=== PATIENT | female | born 1975 | race Two or more races ===

== ENCOUNTER 2024-06-27 01:31 | Emergency (ER) | payer MEDICAID, SELFPAY ==
[2024-06-27 01:32] VITALS: BMI 32.3
[2024-06-27 02:02] VITALS: BP 152/93; PULSE 133; RESP 20; TEMP 37.9; O2SAT 97
--- NOTE | 2024-06-27 02:20 | XR_ITS ---
Examination: PA chest single view TECHNIQUE: Upright PA chest single view Exam date and time: June 27, 2024 0225 hours INDICATIONS: Chest pain beginning 3 days ago. FINDINGS: Normal heart size Lungs are clear. The osseous structures are intact IMPRESSION: No active disease
--- NOTE | 2024-06-27 02:20 | EKG_ITS ---
[facility] (Formerly [facility]) Test Date: 2024-06-27 Pat Name: REYNALDO BISWAS Department: Room: - Gender: Female Ring Maker: : 1975 Requested By: Chidi Vazquez Order Number: [id number] Reading MD: Chidi Vazquez Measurements Intervals [place] Rate: 127 P: 56 OK: 157 QRS: 28 QRSD: 89 T: 46 QT: 289 QTc: 420 Interpretive Statements SINUS TACHYCARDIA POSSIBLE ANTERIOR MYOCARDIAL INFARCTION , PROBABLY OLD [30 ms Q WAVE IN V3/V4, OR R < 0.2 mV IN V4] ABNORMAL RHYTHM ECG Compared to ECG 09/14/2023 16:50:15 No significant changes /store/S0/[id number].pdf
--- NOTE | 2024-06-27 02:21 | EDRME_ITS ---
Rapid Medical Screening Exam [facility] Arrival date/time: 06/27/24 01:31 49F with history of HTN and DM presents to ED with 1 day of CP and SOB, as well as cough. Chief Complaint: Flu Like Symptoms Vital signs: Vital Signs Temperature 100.2 F 06/27/24 02:02 Pulse Rate 133 H 06/27/24 02:02 Respiratory Rate 20 06/27/24 02:02 Blood Pressure 152/93 H 06/27/24 02:02 Pulse Oximetry (%) 97 06/27/24 02:02 Oxygen Delivery Method Room Air 06/27/24 02:02
[2024-06-27 02:34] VITALS: TEMP 37.9
[2024-06-27] MEDS: ACETAMINOPHEN 500 MG TABLET 1000 MG PO (02:34)
[2024-06-27 02:42] LABS: Lactate (Lactic Acid) 1.3 mMol/L (0.4-2.0)
[2024-06-27 02:50] VITALS: BP 145/95; PULSE 127; RESP 19; TEMP 37.4; O2SAT 95
[2024-06-27 03:02] LABS: Basophils % (Auto) 0 % (0-2.5); Eosinophils # (Auto) 0.1 Thou/mm3 (0.0-0.5); Eosinophils % (Auto) 2 % (0-10); Hematocrit 35.6 % (36.0-46.0); Hemoglobin 12.1 g/dL (12.0-16.0); Immature Granulocytes % (Auto) 0 % (0-0); Immature Granulocytes Auto 0.03 Thou/mm3 (0.00-0.00); Lymphocytes # (Auto) 0.9 Thou/mm3 (1.0-4.8); Lymphocytes % (Auto) 10 % (10-50); Mean Corpuscular Hemoglobin 27.6 pg (25.0-35.0); Mean Corpuscular Volume 81 fL (80-100); Monocytes # (Auto) 0.7 Thou/mm3 (0.0-0.8); Monocytes % (Auto) 7 % (0-12); Neutrophils # (Auto) 7.4 Thou/mm3 (1.8-7.7); Neutrophils % (Auto) 81 % (37-80); Nucleated Red Blood Cell % 0 /100 WBC (0); Platelet Count 162 Thou/mm3 (140-440); RDW Standard Deviation 36.7 fL (36.4-46.3); Red Blood Count 4.38 Miln/mm3 (4.00-5.20); White Blood Count 9.1 Thou/mm3 (3.6-11.0)
[2024-06-27 03:13] VITALS: TEMP 37.4
[2024-06-27 03:14] LABS: Alanine Aminotransferase 12 U/L (10-49); Albumin/Globulin Ratio 1.7 (1.2-2.2); Alkaline Phosphatase 124 U/L (46-116); Anion Gap 9 (7-16); Aspartate Amino Transferase 14 U/L (0-34); BUN/Creatinine Ratio 24 Ratio (12-20); Bilirubin,Total 0.4 mg/dL (0.3-1.2); Blood Urea Nitrogen 24 mg/dL (9-23); Calcium 10.3 mg/dL (8.3-10.6); Calcium (Corrected) 10.3 mg/dL (8.5-10.1); Carbon Dioxide 27.9 mMol/L (20.0-31.0); Chloride 105 mMol/L (98-107); Estimated Creatinine Clearance 58.4 mL/min (>60); Globulin 2.9 gm/dL (2.3-3.5); Glucose 333 mg/dL (74-106); Osmolality,Calculated 300 (275-295); Potassium 4.5 mMol/L (3.4-5.1); Procalcitonin 0.12 ng/ml (0.0-0.49); Sodium 142 mMol/L (136-145); Total Protein 7.9 gm/dL (5.7-8.2); Troponin I < 0.002 ng/mL (0.0-0.045); eGFR > 60 See Note
--- NOTE | 2024-06-27 03:21 | PD.EDURI ---
Upper Respiratory Inf. RME/HPI General Chief Complaint: Flu Like Symptoms Stated Complaint: FLU LIKE SYMPTOMS Time Seen by Provider: 06/27/24 03:28 Arrival date/time: 06/27/24 01:31 RME / HPI RME / HPI Narrative: 06/27/24 01:31 49F with history of HTN and DM presents to ED with 1 day of CP and SOB, as well as cough. -------- Dr. Roper?s Main ED Evaluation: 49yo female with a history of DM, HTN presents to the ED for a chief complaint of shakiness. Daughter states the patient was sleeping when she started shaking and appeared short of breath, so she brought the patient in for evaluation. Patient endorses having a headache (6 out of 10), neck pain, chest pressure, N/V, chills, cough, and a sore throat. She denies any diarrhea, fever, sweating or any other associated symptoms. No known allergies. Related Data Home Medications ?Medication ?Instructions ?Recorded ?Confirmed glyburide 5 mg tablet (Diabeta) 5 mg PO BID ##0 11/10/09 lisinopril 10 mg tablet (Zestril) 10 mg PO DAILY ##0 11/10/09 metformin 1,000 mg tablet 1,000 mg PO BID ##0 11/10/09 (Glucophage) simvastatin 10 mg tablet (Zocor) 10 mg PO QHS ##0 11/10/09 Previous Rx's ?Medication ?Instructions ?Recorded hydrocodone 5 mg-acetaminophen 325 1 tab PO BID PRN pain #6 tabs 11/20/21 mg tablet ibuprofen 800 mg tablet 800 mg PO TID PRN pain #30 tabs 11/20/21 cefuroxime axetil 500 mg tablet 500 mg PO BID #14 tabs 09/14/23 naproxen 500 mg tablet (Naprosyn) 500 mg PO BID PRN pain #30 tabs 09/14/23 acetaminophen 500 mg capsule 1,000 mg (2 x 500 mg) PO Q6H PRN 06/27/24 fever or pain 5 days #40 caps ibuprofen 600 mg tablet 600 mg PO Q6H PRN fever or pain 5 06/27/24 days #20 tabs ondansetron 4 mg disintegrating 4 mg PO Q6H PRN nausea and 06/27/24 tablet vomiting #14 tabs Allergies Allergy/AdvReac Type Severity Reaction Status Date / Time No Known Allergies Allergy Verified 06/27/24 01:34 Review of Systems Review of Systems Systems Reviewed: All systems reviewed, normal except as documented ED Exam Narrative Physical exam: GENERAL APPEARANCE: alert and oriented x 4, well-developed, well-nourished, no acute distress VITALS: All vitals were reviewed and the pulse ox is 95% on room air, which is normal according to my interpretation. HEENT: Normocephalic, atraumatic; pupils equal, round, reactive to light; EOMI; mucous membranes pink, moist; throat is erythematous without exudates, uvula is midline, no stridor NECK: Supple LUNGS: CTABL; no wheezes, no rales, no rhonchi HEART: Tachycardic, regular rhythm; normal S1, S2; no murmurs ABDOMEN: non distended; normal BS; soft, no tenderness, no guarding, no rebound; no masses, no organomegaly, no hernia BACK: no CVA tenderness EXTREMITIES: atraumatic; no edema NEUROLOGIC: awake; alert and oriented x4; cranial nerves II-XII grossly intact; no focal sensory or motor deficits PSYCHIATRIC: appropriate mood and affect SKIN: warm, dry, normal color; no rashes Course Quality Measures none Orders Category Date Time Status Bedside COVID-19 Antigen Test NOW Care 06/27/24 02:20 Completed Bedside Influenza A&B Antigen Test NOW Care 06/27/24 01:42 Completed EKG (ED ONLY) *Do not use* NOW Care 06/27/24 02:20 Completed IV [Insert IV] NOW Care 06/27/24 04:05 Active EKG (ED Only) Stat Exams 06/27/24 02:20 Draft XR chest 1V portable Stat Exams 06/27/24 02:20 Taken CBC Stat Lab 06/27/24 02:36 Completed Comprehensive Metabolic Panel Stat Lab 06/27/24 02:36 Completed Lactate (Lactic Acid) Stat Lab 06/27/24 02:36 Completed Procalcitonin Stat Lab 06/27/24 02:36 Completed Troponin I Stat Lab 06/27/24 02:36 Completed Acetaminophen Tab [Tylenol ES Tab] Med 06/27/24 02:20 Discontinued 1,000 mg PO X1 ONE Dexamethasone Inj [Decadron Inj] Med 06/27/24 04:05 Discontinued 10 mg PO X1 ONE DiphenhydrAMINE INJ [Benadryl Inj] Med 06/27/24 04:05 Discontinued 12.5 mg IVP X1 ONE Ketorolac Inj [Toradol Inj] Med 06/27/24 04:05 Discontinued 15 mg IVP X1 ONE Metoclopramide Inj [Reglan Inj] Med 06/27/24 04:05 Discontinued 10 mg IVP X1 ONE Sodium Chloride 0.9% 1000 ml [Ns] 1,000 ml Med 06/27/24 04:05 Discontinued IV 999 mls/hr Reevaluation(s) Reevaluation #1: Patient states she feels a little better, but still continues to have a headache. Will continue to observe the patient. Time: 05:13 Reevaluation #2: Patient feels significantly better and is stable to be discharged home. Time: 05:30 Vital Signs Vital signs: Vital Signs Temperature 100.2 F 06/27/24 02:02 Pulse Rate 133 H 06/27/24 02:02 Respiratory Rate 20 06/27/24 02:02 Blood Pressure 152/93 H 06/27/24 02:02 Pulse Oximetry (%) 97 06/27/24 02:02 Oxygen Delivery Method Room Air 06/27/24 02:02 Upper Respiratory Infection MDM Narrative MDM Narrative:: Scribe Attestation: 06/27/24 Iris Hilton am scribing for and in the presence of Dr. Roper. Patient data External records reviewed:: [facility] previous records (Per chart review, patient was seen here on 09/14/23 for DM with hyperglycemia.) Clinical information provided by:: patient Social determinants that could affect healthcare access:: none Patient has the following chronic illnesses:: DM, HTN How is presenting disease/condition affected by chronic disease/condition?: uneffected by Evaluation data The following diagnostics were reviewed and interpreted by me:: lab results, radiology exam(s) and EKG tracing(s) Lab and/or radiology exams considered but not ordered:: none Interpretation Summary: Bedside COVID and Influenza are negative, CBC is normal, BUN is 24, Glucose is elevated at 333, Anion Gap is 9, Troponin is normal, Lactic Acid is normal, Procalcitonin is normal, according to my interpretation. CXR shows normal cardiac silhouette, normal sharp diaphragmatic edge, no infiltrates, normal costophrenic angles, according to my interpretation. EKG done at 0223, sinus tachycardia, rate of 127, normal axis, no ectopy, no acute ischemia, according to my interpretation. Medications / Prescriptions Medications or Prescriptions considered but not ordered:: none Medication administrations:: Medication Administration History Discontinued Medications Acetaminophen (Acetaminophen 500 Mg Tablet) 1,000 mg PO X1 ONE Stop: 06/27/24 02:21 Last Admin: 06/27/24 02:34 Dose: 1,000 mg Documented By: CVL Dexamethasone Sodium Phosphate (Dexamethasone Sod Phos Inj 10 Mg/Ml Vial) 10 mg PO X1 ONE Stop: 06/27/24 04:06 Last Admin: 06/27/24 04:30 Dose: 10 mg Documented By: CVL Diphenhydramine HCl (Diphenhydramine Inj 50 Mg/Ml Vial) 12.5 mg IVP X1 ONE Stop: 06/27/24 04:06 Last Admin: 06/27/24 04:29 Dose: 12.5 mg Documented By: CVL Sodium Chloride (Ns) 1,000 mls @ 999 mls/hr IV .Q1H1M ONE Stop: 06/27/24 05:05 Last Infusion: 06/27/24 05:28 Dose: Infused Documented By: Admin: 06/27/24 04:26 Dose: 999 mls/hr Documented By: CVL Ketorolac Tromethamine (Ketorolac Inj 30 Mg/Ml Vial) 15 mg IVP X1 ONE Stop: 06/27/24 04:06 Last Admin: 06/27/24 04:26 Dose: 15 mg Documented By: CVL Metoclopramide HCl (Metoclopramide Inj 5 Mg/Ml Vial 2 Ml) 10 mg IVP X1 ONE; Protocol Stop: 06/27/24 04:06 Last Admin: 06/27/24 04:34 Dose: 10 mg Documented By: CVL see above Consultations Consultation(s) initiated? (list below): No Diagnosis Upper Respiratory Differential Diagnosis: influenza and other (pneumonia, COVID, RSV, other) Most likely diagnosis given after review of the tests above:: see below Admission Indicated Admission indicated?: not indicated Admission Request Was there a request for admission?: No Disposition Plan Disposition Plan: Discharge Discharge Attestation Discharge Attestation: The patient and all family members were given an opportunity to ask questions and understood the discharge instructions. Discharge instructions specifically effects, indications for sooner follow up or return to the emergency department, and the expected course of current diagnosis. Patient condition: Stable Discharge Plan Plan Patient Disposition: HOME (Self Care) Disposition Comment: Stable for discharge Patient condition on transfer: Stable Prescriptions/Referrals Prescriptions/Med Rec: New acetaminophen 500 mg capsule 1,000 mg PO Q6H PRN (Reason: fever or pain) 5 Days Qty: 40 0RF ibuprofen 600 mg tablet 600 mg PO Q6H PRN (Reason: fever or pain) 5 Days Qty: 20 0RF ondansetron 4 mg tablet,disintegrating 4 mg PO Q6H PRN (Reason: nausea and vomiting) Qty: 14 0RF No Action glyburide [Diabeta] 5 MG tablet 5 mg PO BID Qty: 0 simvastatin [Zocor] 10 MG tablet 10 mg PO QHS Qty: 0 metformin [Glucophage] 1,000 MG tablet 1,000 mg PO BID Qty: 0 lisinopril [Zestril] 10 MG tablet 10 mg PO DAILY Qty: 0 ibuprofen 800 mg tablet 800 mg PO TID PRN (Reason: pain) Qty: 30 0RF hydrocodone-acetaminophen 5-325 mg tablet 1 tab PO BID MDD 10 PRN (Reason: pain) Qty: 6 0RF cefuroxime axetil 500 mg tablet 500 mg PO BID Qty: 14 0RF naproxen [Naprosyn] 500 mg tablet 500 mg PO BID PRN (Reason: pain) Qty: 30 0RF Referrals: Marie Lacey FNP-C [Primary Care Provider] - In 1 week Problem List Clinical Impression: Diabetes mellitus with hyperglycemia, Viral infection, Pharyngitis Patient/Caregiver Discharge Instructions Discharge Activity: activity as tolerated Education Materials: Diabetes: The Benefits of Exercise, ED Diabetes with High Blood Sugar, ED Viral Syndrome (Adult), ED URI, Viral, No Abx (Adult) Additional Instructions: Please return to the emergency department if you have any worsening or any further medical problems and we will help you. Otherwise you should follow-up with your primary care doctor within the next several days Print Language: Yi Stand Alone Forms: [employer]itu Award Info., Patient Portal Info Letter
[2024-06-27 03:26] VITALS: BP 138/89; PULSE 114; RESP 18; O2SAT 94
[2024-06-27] MEDS: KETOROLAC INJ 30 MG/ML VIAL 15 MG IVP (04:26)
[2024-06-27] MEDS: SODIUM CHLORIDE 0.9% 1000 ML 1,000 ML 999 ML IV (04:26)
[2024-06-27] MEDS: DiphenhydrAMINE INJ 50 MG/ML VIAL 12.5 MG IVP (04:29)
[2024-06-27] MEDS: DEXAMETHASONE SOD PHOS INJ 10 MG/ML VIAL PO (04:30)
[2024-06-27] MEDS: METOCLOPRAMIDE INJ 5 MG/ML VIAL 2 ML 10 MG IVP (04:34)
[2024-06-27 05:43] VITALS: BP 135/83; PULSE 103; RESP 16; O2SAT 96
== END 2024-06-27 05:45 | disposition home or self-care (01) ==
PROVIDERS: Physician Assistant; Emergency Provider Emergency Medicine; PCP Nurse Practitioner Family
DX: E11.65 Type 2 diabetes mellitus with hyperglycemia (principal); B34.9 Viral infection, unspecified; J02.9 Acute pharyngitis, unspecified; R07.9 Chest pain, unspecified; R00.0 Tachycardia, unspecified; I10 Essential (primary) hypertension; Z79.84 Long term (current) use of oral hypoglycemic drugs
CPT/HCPCS: 36415; 71045; 80053; 83605; 84145; 84484; 85025; 87400; 87811; 93005; 96361; 96374; 96375; 99284; J1100; J1200; J1885; J2765; J7030; A9270

== ENCOUNTER → 2024-11-08 | Outpatient (CLI) | payer MEDICAID, SELFPAY ==
--- NOTE | 2024-11-08 | XR_ITS ---
Examination: Lumbar spine, 5 views Technique: Lumbar spine AP, lateral, coned lateral lower lumbar spine, bilateral obliques 5 views Exam date and time: November 08, 2024 1113 hours INDICATIONS: Low back pain one year. FINDINGS: Moderate osteopenia. Moderate diffuse facet arthropathy. Grade 1 spondylolisthesis L5 on S1. Diffuse qhzb-dv-cwskvifr lumbar degenerative disc disease most prominent at L5-S1 IMPRESSION: Grade 1 spondylolisthesis L5 on S1 Diffuse zyrv-iw-peeezwtd lumbar degenerative disc disease, most prominent at L5-S1
--- NOTE | 2024-11-08 | XR_ITS ---
Examination:Left hip AP, lateral, AP pelvis 3 views Technique: Hip AP lateral, AP pelvis, 3 views Exam date and time:November 08, 2024 1113 hours INDICATIONS: Left hip pain beginning 2 years ago FINDINGS: Moderate narrowing left hip joint No left hip fracture or dislocation Greater trochanteric bursitis left hip Mild narrowing right hip Bones of the pelvis intact IMPRESSION: Moderate left hip osteoarthritis Left hip greater trochanteric bursitis.
== END | disposition home or self-care (01) ==
PROVIDERS: PCP Nurse Practitioner Family; Referring Provider Nurse Practitioner Family; Visit Provider Nurse Practitioner Family
DX: M16.12 Unilateral primary osteoarthritis, left hip (principal); M70.62 Trochanteric bursitis, left hip; M43.17 Spondylolisthesis, lumbosacral region; M51.360 Other intervertebral disc degeneration, lumbar region with discogenic back pain only; M51.370 Other intervertebral disc degeneration, lumbosacral region with discogenic back pain only
CPT/HCPCS: 72110; 73502

== ENCOUNTER 2025-02-11 11:31 | Emergency (ER) | payer MEDICAID, SELFPAY ==
[2025-02-11 11:31] VITALS: BMI 36.3
[2025-02-11 11:51] VITALS: BP 100/66; PULSE 103; RESP 16; TEMP 36.4; O2SAT 95
--- NOTE | 2025-02-11 11:59 | PD.EDRME ---
Rapid Medical Screening Exam E Arrival date/time: 02/11/25 11:31 50-year-old female with a history of type 2 diabetes, hypertension, hyperlipidemia presents to the emergency room with a chief complaint of nausea, weakness, and an elevated blood sugar reading of over 500. I have greeted and performed a focused initial assessment of this patient. A comprehensive ED assessment and evaluation of the patient, analysis of all test results, and completion of the medical decision making process will be conducted by additional ED providers. Chief Complaint: Abdominal Pain Time Seen by Provider: 02/11/25 11:54 Vital signs: Vital Signs Temperature 97.6 F 02/11/25 11:51 Pulse Rate 103 H 02/11/25 11:51 Respiratory Rate 16 02/11/25 11:51 Blood Pressure 100/66 02/11/25 11:51 Pulse Oximetry (%) 95 02/11/25 11:51 Oxygen Delivery Method Room Air 02/11/25 11:51 Vital signs reviewed by provider: Yes
[2025-02-11 13:15] LABS: Basophils # (Auto) 0.1 Thou/mm3 (0.0-0.2); Basophils % (Auto) 1 % (0-2.5); Eosinophils # (Auto) 0.1 Thou/mm3 (0.0-0.5); Eosinophils % (Auto) 2 % (0-10); Hematocrit 31.3 % (36.0-46.0); Hemoglobin 10.6 g/dL (12.0-16.0); Immature Granulocytes Auto 0.01 Thou/mm3 (0.00-0.00); Lymphocytes # (Auto) 1.3 Thou/mm3 (1.0-4.8); Lymphocytes % (Auto) 21 % (10-50); Mean Corpuscular HGB Conc 33.9 g/dl (31.0-37.0); Mean Corpuscular Hemoglobin 27.5 pg (25.0-35.0); Mean Corpuscular Volume 81 fL (80-100); Monocytes # (Auto) 0.4 Thou/mm3 (0.0-0.8); Monocytes % (Auto) 6 % (0-12); Neutrophils # (Auto) 4.3 Thou/mm3 (1.8-7.7); Neutrophils % (Auto) 70 % (37-80); Nucleated Red Blood Cell # 0.00 Thou/mm3 (0.00-0.00); Nucleated Red Blood Cell % 0 /100 WBC (0); Platelet Count 178 Thou/mm3 (140-440); RDW Standard Deviation 35.8 fL (36.4-46.3); Red Blood Count 3.86 Miln/mm3 (4.00-5.20); White Blood Count 6.1 Thou/mm3 (3.6-11.0)
[2025-02-11 13:17] LABS: Beta Hydroxybutyrate 0.2 mmol/L (<0.6)
[2025-02-11 13:30] LABS: Collection Type, Urine Clean Catch
[2025-02-11 13:41] LABS: Bacteria,Urine Rare; Bilirubin,Urine Negative (Negative); Blood,Urine Negative (Negative); Clarity,Urine Clear (Clear/Hazy); Color,Urine Lt-Yellow (Lt Yel-Yel); Glucose, Urine 4+ (Negative); Hyaline Casts,Urine < 1 /hpf (0-1); Ketones,Urine Negative (Negative); Leukocyte Esterase,Urine Positive (Negative); Nitrite,Urine Negative (Negative); PH,Urine 6.0 (5.0-7.0); Protein,Urine Trace (Neg - Trace); RBC,Urine 6 /hpf (0-3); Specific Gravity,Urine 1.025 (1.001-1.035); Squamous Epithelial Cell,Urine 8 /hpf (0-5); Urobilinogen,Urine Negative mg/dL (0.0-1.0); WBC,Urine 28 /hpf (0-5)
[2025-02-11 13:57] LABS: Alanine Aminotransferase 10 U/L (10-49); Albumin, Serum 4.2 gm/dL (3.5-5.0); Albumin/Globulin Ratio 1.6 (1.2-2.2); Alkaline Phosphatase 153 U/L (46-116); Anion Gap 9 (7-16); Aspartate Amino Transferase 14 U/L (0-34); BUN/Creatinine Ratio 28 Ratio (12-20); Bilirubin,Total 0.3 mg/dL (0.3-1.2); Blood Urea Nitrogen 31 mg/dL (9-23); Calcium 9.6 mg/dL (8.3-10.6); Calcium (Corrected) 9.6 mg/dL (8.5-10.1); Carbon Dioxide 26.4 mMol/L (20.0-31.0); Chloride 97 mMol/L (98-107); Creatinine (Component) 1.1 mg/dL (0.6-1.3); Estimated Creatinine Clearance 56.0 mL/min (>60); Globulin 2.7 gm/dL (2.3-3.5); Lipase 22 U/L (12-53); Osmolality,Calculated 293 (275-295); Potassium 4.8 mMol/L (3.4-5.1); Sodium 132 mMol/L (136-145); Total Protein 6.9 gm/dL (5.7-8.2); eGFR > 60 See Note
[2025-02-11 14:00] LABS: Glucose 496 mg/dL (74-106)
--- NOTE | 2025-02-11 14:34 | PD.EDABDPN ---
ED Abdominal Pain RME/HPI General Chief Complaint: Abdominal Pain Stated complaint: SENT BY PMD FOR HIGH BS Time seen by provider: 02/11/25 11:54 Arrival date/time: 02/11/25 11:31 Limitations: no limitations RME / HPI RME / HPI narrative: 02/11/25 11:31 50-year-old female with a history of type 2 diabetes, hypertension, hyperlipidemia presents to the emergency room with a chief complaint of nausea, weakness, and an elevated blood sugar reading of over 500. I have greeted and performed a focused initial assessment of this patient. A comprehensive ED assessment and evaluation of the patient, analysis of all test results, and completion of the medical decision making process will be conducted by additional ED providers. Dr. Kelly evaluation Patient is a 50-year-old female with medical history notable for diabetes, hypertension, and lipidemia that seen emerged from concerns for abdominal discomfort and elevated blood glucose. Patient states that she does not closely monitor her blood sugar at home, has a history of recurrent skin infections. Endorses some suprapubic pain. Also has had chills at home. No chest pain cough runny nose melena bloody stools drugs alcohol smoking recent travel or sick contacts. Denies any rashes at this time Related Data Home Medications ?Medication ?Instructions ?Recorded ?Confirmed glyburide 5 mg tablet (Diabeta) 5 mg PO BID ##0 11/10/09 lisinopril 10 mg tablet (Zestril) 10 mg PO DAILY ##0 11/10/09 metformin 1,000 mg tablet 1,000 mg PO BID ##0 11/10/09 (Glucophage) simvastatin 10 mg tablet (Zocor) 10 mg PO QHS ##0 11/10/09 Previous Rx's ?Medication ?Instructions ?Recorded hydrocodone 5 mg-acetaminophen 325 1 tab PO BID PRN pain #6 tabs 11/20/21 mg tablet ibuprofen 800 mg tablet 800 mg PO TID PRN pain #30 tabs 11/20/21 cefuroxime axetil 500 mg tablet 500 mg PO BID #14 tabs 09/14/23 naproxen 500 mg tablet (Naprosyn) 500 mg PO BID PRN pain #30 tabs 09/14/23 ondansetron 4 mg disintegrating 4 mg PO Q6H PRN nausea and 06/27/24 tablet vomiting #14 tabs cephalexin 500 mg tablet 500 mg PO QID #20 tabs 02/11/25 Allergies Allergy/AdvReac Type Severity Reaction Status Date / Time No Known Allergies Allergy Verified 02/11/25 11:35 ED Exam General Limitations: Present no limitations General appearance: Present alert Head Head exam: Present atraumatic and normocephalic Eye Eye exam: Present normal appearance ENT ENT exam: Present normal exam Neck Neck exam: Present normal inspection Chest Chest inspection: Present symmetric chest wall rise Respiratory Respiratory exam: Absent respiratory distress Cardiovascular Cardiovascular exam: Present tachycardia Abdominal Exam Abdominal exam: Present soft and tenderness (Mild diffuse tenderness, no rebound or guarding); Absent distention Bimanual exam: Present uterine tenderness (No perineal rashes) Extremities Exam Extremities exam: Present normal inspection Neurological Exam Neurological exam: Present alert and other Psychiatric Psychiatric exam: Present normal affect Skin Skin exam: Present warm and dry Course Quality Measures none Orders Category Date Time Status Fingerstick [Bedside Blood Glucose] NOW Care 02/11/25 11:57 Completed Beta Hydroxybutyrate Stat Lab 02/11/25 12:59 Completed CBC Stat Lab 02/11/25 12:59 Completed CMP [Comprehensive Metabolic Panel] Stat Lab 02/11/25 12:59 Completed Lipase Stat Lab 02/11/25 12:59 Completed UA [Urinalysis] Stat Lab 02/11/25 13:23 Completed Urine Culture Stat Lab 02/11/25 13:23 Received Insulin Regular Med 02/11/25 14:43 Discontinued 5 unit IV X1 ONE Ringers Lactated 1000 ml [Lactated Ringers] 1,000 ml Med 02/11/25 14:42 Active IV 999 mls/hr cefTRIAXone/D5w 1gm IV premix [Rocephin/D5w 1gm IV Med 02/11/25 14:42 Active premix] 1 gm in 50 ml IV X1 Vital Signs Vital signs: Vital Signs Temperature 97.6 F 02/11/25 11:51 Pulse Rate 103 H 02/11/25 11:51 Respiratory Rate 16 02/11/25 11:51 Blood Pressure 100/66 02/11/25 11:51 Pulse Oximetry (%) 95 02/11/25 11:51 Oxygen Delivery Method Room Air 02/11/25 11:51 Abdominal Pain MDM MDM Narrative MDM Narrative:: Patient is a 50-year-old female into the emergency department concerns for elevated blood glucose abdominal pain. Vital signs and exam as listed. Concern for diabetic acidosis, pancreatitis urinary tract infection enteritis among others. Prior provider evaluated patient. Ordered labs after medication for symptom relief. Labs without leukocytosis no left shift, hemoglobin 10.6 previously 12. Patient with sodium 132, chloride 97. BUN 31. Creatinine normal. Patient glucose 496. Anion gap and bicarb normal. No significant transaminitis, beta-hydroxybutyrate normal. Urinalysis positive for leuk esterase 28 white blood cells 6 RBCs with rare bacteria concerning for urinary tract infection. Will provide patient with antibiotics as well as a liter of fluids. Also provide patient with insulin. On reevaluation patient hemodynamically stable nondistressed will discharge home with close return precautions follow-up with primary care doctor. Advised patient on the importance of blood glucose control to prevent complications from diabetes. Updated patient's daughter at bedside as well. Patient data External records reviewed:: [facility] previous records Clinical information provided by:: patient Social determinants that could affect healthcare access:: none Patient has the following chronic illnesses:: See MDM How is presenting disease/condition affected by chronic disease/condition?: exacerbated by Evaluation data The following diagnostics were reviewed and interpreted by me:: lab results and radiology exam(s) Lab and/or radiology exams considered but not ordered:: None Interpretation Summary: See above Medications / Prescriptions Medications or Prescriptions considered but not ordered:: None Medication administrations:: Medication Administration History Lactated Ringer's (Lactated Ringers) 1,000 mls @ 999 mls/hr IV .Q1H1M ONE Stop: 02/11/25 15:42 Ceftriaxone Sodium/Dextrose (Rocephin/D5w 1gm Iv Premix) 1 gm in 50 mls @ 100 mls/hr IV X1 ONE Stop: 02/11/25 15:11 Discontinued Medications Insulin Human Regular (Insulin Hum Regular 1 Unit/0.01 Ml (Per Unit)) 5 unit IV X1 ONE Stop: 02/11/25 14:44 See above Consultations Consultation(s) initiated? (list below): No Diagnosis Differential diagnosis abdominal pain: other Most likely diagnosis given after review of the tests above:: See MDM Admission Indicated Admission indicated?: not indicated Admission Request Was there a request for admission?: No Disposition Plan Disposition Plan: Discharge Discharge Attestation Discharge Attestation: The patient and all family members were given an opportunity to ask questions and understood the discharge instructions. Discharge instructions specifically effects, indications for sooner follow up or return to the emergency department, and the expected course of current diagnosis. Patient condition: Stable Discharge Plan Plan Patient Disposition: HOME (Self Care) Prescriptions/Referrals Prescriptions/Med Rec: New cephalexin 500 mg tablet 500 mg PO QID Qty: 20 0RF No Action glyburide [Diabeta] 5 MG tablet 5 mg PO BID Qty: 0 simvastatin [Zocor] 10 MG tablet 10 mg PO QHS Qty: 0 metformin [Glucophage] 1,000 MG tablet 1,000 mg PO BID Qty: 0 lisinopril [Zestril] 10 MG tablet 10 mg PO DAILY Qty: 0 ibuprofen 800 mg tablet 800 mg PO TID PRN (Reason: pain) Qty: 30 0RF hydrocodone-acetaminophen 5-325 mg tablet 1 tab PO BID MDD 10 PRN (Reason: pain) Qty: 6 0RF ondansetron 4 mg tablet,disintegrating 4 mg PO Q6H PRN (Reason: nausea and vomiting) Qty: 14 0RF cefuroxime axetil 500 mg tablet 500 mg PO BID Qty: 14 0RF naproxen [Naprosyn] 500 mg tablet 500 mg PO BID PRN (Reason: pain) Qty: 30 0RF Referrals: Marie Lacey FNP-C [Primary Care Provider] - In 1 week Problem List Clinical Impression: Urinary tract infection, Chronic hyperglycemia Patient/Caregiver Discharge Instructions Education Materials: Urinary Tract Infections in Women Additional Instructions: Hidr?tese makayla y sera un seguimiento con peña m?dico de atenci?n primaria dentro de 1 a 2 d?as. Regrese inmediatamente si tiene s?ntomas que empeoran o s?ntomas preocupantes. Print Language: Indonesian Stand Alone Forms: Ritu Award Info., Patient Portal Info Letter
[2025-02-11] MEDS: INSULIN HUM REGULAR 1 UNIT/0.01 ML (PER UNIT) 5 UNIT IV (15:07)
[2025-02-11] MEDS: cefTRIAXone/D5w 1gm IV premix 1 GM/50 ML BAG IV (15:13)
[2025-02-11 15:16] VITALS: BP 117/69; PULSE 96; RESP 17; TEMP 36.6; O2SAT 98
[2025-02-11] MEDS: RINGERS LACTATED 1000 ML 1,000 ML 999 ML IV (16:01)
--- NOTE | 2025-02-11 16:30 | PD.EDADDENDU ---
Emergency Room Addendum Addendum Narrative: 4:30p was notified by nursing staff that patient started shaking while she was sleeping and was briefly difficult to arouse. When she woke up she was moving all extremities, answering questions appropriately. Patient's daughter states that over the last couple days has had a couple episodes where she wakes up with chills, however has not wanted to come to the emergency department. I went and assessed the patient, patient GCS 15, moving all extremities however she does appear to be shivering. She strong in all 4 extremities, sensation intact, no cranial nerve abnormalities appreciated. Patient no stridor, no swelling in her oropharynx. Given that patient's daughter states that the symptoms have happened previously over the last couple days, do not suspect that this is an allergic reaction. Nurse did check a blood glucose >300. Will order blood cult, repeat labs Repeat labs stable, on reeval, patient HD stable NAD
[2025-02-11 17:07] LABS: Base Excess, Venous 0 (-3-3); O2 Saturation, Venous 84 % (96-97); PCO2, Venous 37 mmHg (36-56); PO2, Venous 45 mmHg (15-58); pH, Venous 7.42 (7.33-7.66)
[2025-02-11 17:14] VITALS: BP 122/69; PULSE 98; RESP 18; TEMP 36.5; O2SAT 95
[2025-02-11 17:40] LABS: T4 (Thyroxine) 6.6 mcg/dL (4.5-10.9)
[2025-02-11 17:49] LABS: Alanine Aminotransferase 10 U/L (10-49); Albumin, Serum 4.4 gm/dL (3.5-5.0); Albumin/Globulin Ratio 1.7 (1.2-2.2); Alkaline Phosphatase 138 U/L (46-116); Anion Gap 9 (7-16); Aspartate Amino Transferase 15 U/L (0-34); BUN/Creatinine Ratio 28 Ratio (12-20); Bilirubin,Total 0.3 mg/dL (0.3-1.2); Blood Urea Nitrogen 25 mg/dL (9-23); Calcium 9.6 mg/dL (8.3-10.6); Calcium (Corrected) 9.6 mg/dL (8.5-10.1); Carbon Dioxide 24.9 mMol/L (20.0-31.0); Chloride 99 mMol/L (98-107); Creatinine (Component) 0.9 mg/dL (0.6-1.3); Estimated Creatinine Clearance 68.4 mL/min (>60); Globulin 2.6 gm/dL (2.3-3.5); Glucose 364 mg/dL (74-106); Osmolality,Calculated 285 (275-295); Potassium 4.5 mMol/L (3.4-5.1); Sodium 133 mMol/L (136-145); Thyroid Stimulating Hormone 1.85 uIU/mL (0.55-4.78); Total Protein 7.0 gm/dL (5.7-8.2); Troponin I < 0.002 ng/mL (0.0-0.045); eGFR > 60 See Note
[2025-02-11 17:57] VITALS: BP 122/73; PULSE 97; RESP 14; O2SAT 99
== END 2025-02-11 17:59 | disposition home or self-care (01) ==
PROVIDERS: Nurse Practitioner Family; Emergency Provider Emergency Medicine; PCP Nurse Practitioner Family
DX: N39.0 Urinary tract infection, site not specified (principal); E11.65 Type 2 diabetes mellitus with hyperglycemia; E78.5 Hyperlipidemia, unspecified; I10 Essential (primary) hypertension; Z79.84 Long term (current) use of oral hypoglycemic drugs
CPT/HCPCS: 36415; 80053; 80307; 81001; 82010; 82803; 83690; 84436; 84443; 84484; 85025; 87040; 87086; 96360; 96361; 96365; 99282; J0696; J1815; J7120